=== PATIENT | female | born 1960 | race Caucasian/White ===

== ENCOUNTER 2018-01-17 20:30 | Inpatient (IN) | payer OTHER ==
[~2018-01-17] VITALS: Ht 162.6 cm; Wt 110.0 kg
[2018-01-17] MEDS ORDERED: ondansetron 4mg rapidly disintigrating tab PO ONE (20:45)
[2018-01-17] MEDS ORDERED: morphine 4 MG/ML inj SYRINge IV ONE ×2 (20:45→21:30)
[2018-01-17] MEDS ORDERED: normal saline 1000ml 1,000 ML IV ONE (21:40)
[2018-01-17 22:00] LABS: BASOPHILS % (AUTO) 0 % (0-1); EOSINOPHILS # (AUTO) 0.2 X10'3 (0-0.9); HEMATOCRIT 37.6 % (35.0-45.0); HEMOGLOBIN 12.6 g/dl (12.0-16.0); LYMPHOCYTES # (AUTO) 1.3 X10'3 (1.1-4.8); LYMPHOCYTES % (AUTO) 10.3 % (21-51); MEAN CORPUSCULAR HEMOGLOBIN 27.8 PG (27.0-31.0); MEAN CORPUSCULAR HGB CONC 33.5 % (33.0-36.5); MEAN CORPUSCULAR VOLUME 83.1 FL (78-98); MEAN PLATELET VOLUME 8.7 FL (7.4-10.4); MONOCYTES # (AUTO) 0.3 X10'3 (0-0.9); MONOCYTES % (AUTO) 2.6 % (2-12); NEUTROPHILS # (AUTO) 10.7 X10'3 (1.8-7.7); NEUTROPHILS % (AUTO) 85.1 % (42-75); PLATELET COUNT 354 X10'3 (140-440); RED BLOOD COUNT 4.53 X10'6 (4.20-5.60); RED CELL DISTRIBUTION WIDTH 14.6 % (11.5-14.5); WHITE BLOOD COUNT 12.5 X10'3 (4.5-11.0)
[2018-01-17] MEDS ORDERED: FLEC50TA PO (22:02)
[2018-01-17] MEDS ORDERED: ESTR1TAB19 PO (22:02)
[2018-01-17] MEDS ORDERED: MEDR2.5T PO (22:02)
[2018-01-17] MEDS ORDERED: GABA300C PO (22:02)
[2018-01-17] MEDS ORDERED: LANS30TA4 PO (22:02)
[2018-01-17] MEDS ORDERED: FURO-149 PO (22:02)
[2018-01-17] MEDS ORDERED: TRAM50TA2 PO (22:12)
[2018-01-17] MEDS ORDERED: POTA10TA19 PO (22:12)
[2018-01-17] MEDS ORDERED: NITR0.4T SL (22:12)
[2018-01-17] MEDS ORDERED: LISI-600 PO (22:12)
[2018-01-17] MEDS ORDERED: ALPR1TAB2 PO (22:12)
[2018-01-17] MEDS ORDERED: CHOL500050 (22:12)
[2018-01-17] MEDS ORDERED: METF500T PO (22:12)
[2018-01-17] MEDS ORDERED: LEVO50TA8 PO (22:12)
[2018-01-17] MEDS ORDERED: VALA10002 PO (22:12)
[2018-01-17 22:15] LABS: ALANINE AMINOTRANSFERASE 18 U/L (12-78); ALBUMIN 3.3 G/DL (3.4-5.0); ALBUMIN/GLOBULIN RATIO 0.8 (1.1-1.5); ALKALINE PHOSPHATASE 95 IU/L (46-116); ANION GAP 8 (8-16); ASPARTATE AMINO TRANSFERASE 12 U/L (10-37); BILIRUBIN,TOTAL 0.5 MG/DL (0.1-1.0); BLOOD UREA NITROGEN 16 MG/DL (7-18); BUN/CREATININE RATIO 13.7 (6.6-38.0); CHLORIDE 101 MMOL/L (99-107); CREATININE 1.17 MG/DL (0.40-0.90); GLUCOSE 100 MG/DL (70-104); POTASSIUM 4.1 MMOL/L (3.5-5.1); SODIUM 137 MMOL/L (135-145); TOTAL PROTEIN 7.3 G/DL (6.4-8.2); eGFR 47 ML/MIN
[2018-01-17 22:36] LABS: CLARITY,URINE CLEAR (Clear); COLOR,URINE YELLOW (Yellow); GLUCOSE, URINE NEGATIVE (Neg); KETONES,URINE NEGATIVE (Neg); LEUKOCYTE ESTERASE ,URINE NEGATIVE (Neg); NITRITES, URINE NEGATIVE (Neg); OCCULT BLOOD,URINE MODERATE (Neg); PH,URINE 6.5 (4.8-8.0); PROTEIN,URINE NEGATIVE (Neg); UROBILINOGEN,URINE 0.2 E.U/dL (0.2-1.0)
[2018-01-17 22:44] LABS: UA COLLECTION TYPE CLN CATCH MIDSTREAM
[2018-01-17 22:47] LABS: BACTERIA,URINE 3+ /HPF (Neg); SQUAMOUS EPITHELIAL CELL,UR MANY /LPF (FEW); WBC,URINE 0-4 /HPF (0-4)
[2018-01-17 22:48] LABS: RBC,URINE 0-2 /HPF (0-2)
[2018-01-17] MEDS ORDERED: HYDROmorphone 1 mg/ml syringe IV ONE (23:10)
[2018-01-18] MEDS ORDERED: DILT120T14 PO (01:14)
[2018-01-18] MEDS ORDERED: normal saline 1000ml 1,000 ML IV SCH (01:38)
[2018-01-18] MEDS ORDERED: magnesium hydroxide 30ml (MOM) UD suspension PO PRN (01:40)
[2018-01-18] MEDS ORDERED: mag hydrox/Alum hydrox/simeth 30ml oral suspension PO PRN (01:40)
[2018-01-18] MEDS ORDERED: acetaminophen 325mg tablet PO PRN (01:40)
[2018-01-18] MEDS ORDERED: naloxone 0.4 mg/ml inj IV PRN (01:45)
[2018-01-18] MEDS ORDERED: nitroGLYCERIN 0.4mg SUBLingual tab SL PRN (01:45)
[2018-01-18] MEDS ORDERED: CADD PCA waste documentation MC PRN (01:45)
[2018-01-18] MEDS ORDERED: HYDROmorphone 1 mg/ml syringe IV ONE (02:05)
[2018-01-18] MEDS: ondansetron/PF 4mg/2ml inj IV PRN (02:25)
[2018-01-18 02:50] VITALS: BP 122/73
[2018-01-18] MEDS: HYDROmorphone/NS 1 mg/ml CADD 50 ML IV SCH ×11 (03:00→23:00)
[2018-01-18 04:28] LABS: HEMOGLOBIN A1C 6.5 % (4.5-6.2)
[2018-01-18 06:00] VITALS: BP 90/47
[2018-01-18] MEDS: furosemide 40mg tablet PO SCH (08:00)
[2018-01-18] MEDS: lisinopril 20mg tablet PO SCH (08:00)
[2018-01-18] MEDS: lisinopril 5mg tablet PO SCH (08:00)
[2018-01-18] MEDS: traMADol 50MG tablet PO SCH ×2 (08:00→20:00)
[2018-01-18] MEDS: valacyclovir 500mg tablet PO SCH (08:00)
[2018-01-18] MEDS: diltiazem CD 120mg capsule (once-daily) PO SCH (08:00)
[2018-01-18] MEDS: levoTHYROXINE 25mcg tablet PO SCH (09:02)
[2018-01-18] MEDS: pantoprazole 40mg Tablet.DR PO SCH (09:02)
[2018-01-18] MEDS: metFORMIN 500mg tablet PO SCH (09:03)
[2018-01-18] MEDS: flecainide 50mg tablet PO SCH ×2 (09:04→21:03)
[2018-01-18] MEDS: gabapentin 300mg capsule PO SCH ×2 (09:04→21:03)
[2018-01-18] MEDS: potassium chloride 10mEq ER tablet PO SCH (09:05)
[2018-01-18] MEDS: medroxyprogesterone acet. 2.5mg tablet PO SCH (09:06)
[2018-01-18] MEDS: estradiol 1mg tablet PO SCH (09:06)
[2018-01-18 10:00] VITALS: BP 97/49
[2018-01-18] MEDS ORDERED: LORazepam 2 mg/ml vial IV ONE (13:20)
[2018-01-18 18:00] VITALS: BP 115/58
[2018-01-18 18:40] LABS: CLARITY,URINE SLIGHTLY CLOUDY (Clear); COLOR,URINE YELLOW (Yellow); GLUCOSE, URINE NEGATIVE (Neg); KETONES,URINE NEGATIVE (Neg); LEUKOCYTE ESTERASE ,URINE NEGATIVE (Neg); NITRITES, URINE NEGATIVE (Neg); OCCULT BLOOD,URINE MODERATE (Neg); PH,URINE 5.5 (4.8-8.0); PROTEIN,URINE NEGATIVE (Neg); UROBILINOGEN,URINE 0.2 E.U/dL (0.2-1.0)
[2018-01-18 18:46] LABS: UA COLLECTION TYPE NON-SPECIFIED
[2018-01-18 18:51] LABS: BACTERIA,URINE 2+ /HPF (Neg); MUCUS STRANDS NONE SEEN /LPF (Neg); RBC,URINE 0-2 /HPF (0-2); SQUAMOUS EPITHELIAL CELL,UR MANY /LPF (FEW)
[2018-01-18] MEDS: ALPRAZolam 0.5mg tablet PO SCH (21:03)
[2018-01-18] MEDS: sennosides/docusate sodium tablet PO SCH (21:03)
[2018-01-18 22:00] VITALS: BP 96/63
[2018-01-19] MEDS: diphenhydrAMINE 25mg capsule PO PRN
[2018-01-19] MEDS: HYDROmorphone/NS 1 mg/ml CADD 50 ML IV SCH ×5 (01:00→09:00)
[2018-01-19 05:53] LABS: BASOPHILS % (AUTO) 0.5 % (0-1); EOSINOPHILS # (AUTO) 0.2 X10'3 (0-0.9); EOSINOPHILS % (AUTO) 2.4 % (0-6); HEMATOCRIT 33.9 % (35.0-45.0); LYMPHOCYTES # (AUTO) 1.4 X10'3 (1.1-4.8); LYMPHOCYTES % (AUTO) 20.8 % (21-51); MEAN CORPUSCULAR HEMOGLOBIN 27.2 PG (27.0-31.0); MEAN CORPUSCULAR HGB CONC 32.6 % (33.0-36.5); MEAN CORPUSCULAR VOLUME 83.6 FL (78-98); MEAN PLATELET VOLUME 8.9 FL (7.4-10.4); MONOCYTES # (AUTO) 0.3 X10'3 (0-0.9); MONOCYTES % (AUTO) 4.3 % (2-12); PLATELET COUNT 281 X10'3 (140-440); RED BLOOD COUNT 4.05 X10'6 (4.20-5.60); RED CELL DISTRIBUTION WIDTH 14.9 % (11.5-14.5); WHITE BLOOD COUNT 6.9 X10'3 (4.5-11.0)
[2018-01-19 06:00] VITALS: BP 96/50
[2018-01-19 06:13] LABS: ALANINE AMINOTRANSFERASE 17 U/L (12-78); ALBUMIN 2.7 G/DL (3.4-5.0); ALBUMIN/GLOBULIN RATIO 0.8 (1.1-1.5); ALKALINE PHOSPHATASE 76 IU/L (46-116); ANION GAP 5 (8-16); ASPARTATE AMINO TRANSFERASE 15 U/L (10-37); BILIRUBIN,TOTAL 0.7 MG/DL (0.1-1.0); BLOOD UREA NITROGEN 12 MG/DL (7-18); BUN/CREATININE RATIO 11.4 (6.6-38.0); CALCIUM 8.3 MG/DL (8.5-10.1); CHLORIDE 103 MMOL/L (99-107); CREATININE 1.05 MG/DL (0.40-0.90); GLUCOSE 109 MG/DL (70-104); POTASSIUM 3.8 MMOL/L (3.5-5.1); SODIUM 138 MMOL/L (135-145); TOTAL CARBON DIOXIDE 29.8 MMOL/L (24-32); TOTAL PROTEIN 6.3 G/DL (6.4-8.2); eGFR 54 ML/MIN
[2018-01-19] MEDS: furosemide 40mg tablet PO SCH (08:00)
[2018-01-19] MEDS: valacyclovir 500mg tablet PO SCH (08:00)
[2018-01-19] MEDS: traMADol 50MG tablet PO SCH (08:00)
[2018-01-19] MEDS: levoTHYROXINE 25mcg tablet PO SCH (08:46)
[2018-01-19] MEDS: pantoprazole 40mg Tablet.DR PO SCH (08:46)
[2018-01-19] MEDS: flecainide 50mg tablet PO SCH ×2 (08:46→21:46)
[2018-01-19] MEDS: potassium chloride 10mEq ER tablet PO SCH (08:46)
[2018-01-19] MEDS: estradiol 1mg tablet PO SCH (08:46)
[2018-01-19] MEDS: medroxyprogesterone acet. 2.5mg tablet PO SCH (08:46)
[2018-01-19] MEDS: gabapentin 300mg capsule PO SCH ×2 (08:46→21:46)
[2018-01-19] MEDS: metFORMIN 500mg tablet PO SCH (08:46)
[2018-01-19] MEDS: lisinopril 20mg tablet PO SCH (08:48)
[2018-01-19] MEDS: lisinopril 5mg tablet PO SCH (08:48)
[2018-01-19] MEDS: diltiazem CD 120mg capsule (once-daily) PO SCH (08:48)
[2018-01-19] MEDS ORDERED: oxyCODONE/APAP 5-325mg tablet PO PRN (09:15)
[2018-01-19] MEDS: oxyCODONE/APAP 5-325mg tablet PO PRN ×4 (09:34→21:46)
[2018-01-19 10:00] VITALS: BP 156/68
[2018-01-19] MEDS ORDERED: cyclobenzaprine 10mg tablet PO PRN (13:50)
[2018-01-19] MEDS ORDERED: HYDROmorphone inj. 0.5 MG/0.5 ML DISP.SYRIN IV ONE (13:50)
[2018-01-19] MEDS ORDERED: HYDROmorphone 1 mg/ml syringe IV ONE (14:00)
[2018-01-19 18:00] VITALS: BP 97/37
[2018-01-19 18:15] VITALS: BP 126/78
[2018-01-19] MEDS: ALPRAZolam 0.5mg tablet PO SCH (21:00)
[2018-01-19] MEDS: sennosides/docusate sodium tablet PO SCH (21:51)
[2018-01-20] MEDS: diphenhydrAMINE 25mg capsule PO PRN (00:44)
[2018-01-20] MEDS: oxyCODONE/APAP 5-325mg tablet PO PRN ×5 (05:04→21:32)
[2018-01-20 06:00] VITALS: BP 101/46
[2018-01-20 06:06] LABS: BASOPHILS % (AUTO) 0.4 % (0-1); EOSINOPHILS # (AUTO) 0.1 X10'3 (0-0.9); EOSINOPHILS % (AUTO) 2.1 % (0-6); HEMATOCRIT 32.1 % (35.0-45.0); HEMOGLOBIN 10.7 g/dl (12.0-16.0); LYMPHOCYTES # (AUTO) 1.9 X10'3 (1.1-4.8); LYMPHOCYTES % (AUTO) 29.1 % (21-51); MEAN CORPUSCULAR HEMOGLOBIN 27.8 PG (27.0-31.0); MEAN CORPUSCULAR HGB CONC 33.4 % (33.0-36.5); MEAN CORPUSCULAR VOLUME 83.3 FL (78-98); MEAN PLATELET VOLUME 8.8 FL (7.4-10.4); MONOCYTES # (AUTO) 0.4 X10'3 (0-0.9); MONOCYTES % (AUTO) 5.6 % (2-12); NEUTROPHILS # (AUTO) 4.1 X10'3 (1.8-7.7); NEUTROPHILS % (AUTO) 62.8 % (42-75); PLATELET COUNT 286 X10'3 (140-440); RED BLOOD COUNT 3.85 X10'6 (4.20-5.60); RED CELL DISTRIBUTION WIDTH 14.9 % (11.5-14.5); WHITE BLOOD COUNT 6.6 X10'3 (4.5-11.0)
[2018-01-20 06:34] LABS: ALANINE AMINOTRANSFERASE 18 U/L (12-78); ALBUMIN 2.6 G/DL (3.4-5.0); ALBUMIN/GLOBULIN RATIO 0.8 (1.1-1.5); ALKALINE PHOSPHATASE 79 IU/L (46-116); ANION GAP 6 (8-16); ASPARTATE AMINO TRANSFERASE 14 U/L (10-37); BILIRUBIN,TOTAL 0.5 MG/DL (0.1-1.0); BLOOD UREA NITROGEN 12 MG/DL (7-18); BUN/CREATININE RATIO 11.8 (6.6-38.0); CALCIUM 8.7 MG/DL (8.5-10.1); CHLORIDE 104 MMOL/L (99-107); CREATININE 1.02 MG/DL (0.40-0.90); GLUCOSE 112 MG/DL (70-104); POTASSIUM 3.8 MMOL/L (3.5-5.1); SODIUM 138 MMOL/L (135-145); TOTAL CARBON DIOXIDE 28.5 MMOL/L (24-32); eGFR 55 ML/MIN
[2018-01-20] MEDS: metFORMIN 500mg tablet PO SCH (07:13)
[2018-01-20] MEDS: levoTHYROXINE 25mcg tablet PO SCH (07:13)
[2018-01-20] MEDS: pantoprazole 40mg Tablet.DR PO SCH (07:13)
[2018-01-20] MEDS: flecainide 50mg tablet PO SCH ×2 (07:14→21:32)
[2018-01-20] MEDS: gabapentin 300mg capsule PO SCH ×2 (07:14→21:31)
[2018-01-20] MEDS: medroxyprogesterone acet. 2.5mg tablet PO SCH (07:14)
[2018-01-20] MEDS: potassium chloride 10mEq ER tablet PO SCH (07:14)
[2018-01-20] MEDS: diltiazem CD 120mg capsule (once-daily) PO SCH (07:14)
[2018-01-20] MEDS: estradiol 1mg tablet PO SCH (07:14)
[2018-01-20] MEDS: valacyclovir 500mg tablet PO SCH (08:00)
[2018-01-20] MEDS: lisinopril 20mg tablet PO SCH (08:00)
[2018-01-20] MEDS: lisinopril 5mg tablet PO SCH (08:00)
[2018-01-20] MEDS: furosemide 40mg tablet PO SCH (08:00)
[2018-01-20 18:00] VITALS: BP 107/53
[2018-01-20] MEDS: ALPRAZolam 0.5mg tablet PO SCH (21:00)
[2018-01-20] MEDS: sennosides/docusate sodium tablet PO SCH (21:31)
[2018-01-20 22:00] VITALS: BP 112/70
[2018-01-21] MEDS: HYDROmorphone 1 mg/ml syringe IV PRN ×2 (01:41→05:49)
[2018-01-21] MEDS: oxyCODONE/APAP 5-325mg tablet PO PRN ×2 (01:52→04:52)
[2018-01-21 06:08] LABS: BASOPHILS % (AUTO) 0.5 % (0-1); EOSINOPHILS # (AUTO) 0.2 X10'3 (0-0.9); EOSINOPHILS % (AUTO) 2.6 % (0-6); HEMATOCRIT 33.3 % (35.0-45.0); MEAN CORPUSCULAR HEMOGLOBIN 27.6 PG (27.0-31.0); MEAN CORPUSCULAR HGB CONC 33.1 % (33.0-36.5); MEAN CORPUSCULAR VOLUME 83.5 FL (78-98); MEAN PLATELET VOLUME 8.4 FL (7.4-10.4); MONOCYTES # (AUTO) 0.4 X10'3 (0-0.9); MONOCYTES % (AUTO) 5.9 % (2-12); PLATELET COUNT 312 X10'3 (140-440); RED CELL DISTRIBUTION WIDTH 15.1 % (11.5-14.5); WHITE BLOOD COUNT 7.6 X10'3 (4.5-11.0)
[2018-01-21 06:36] LABS: ALANINE AMINOTRANSFERASE 29 U/L (12-78); ALBUMIN 2.7 G/DL (3.4-5.0); ALBUMIN/GLOBULIN RATIO 0.7 (1.1-1.5); ALKALINE PHOSPHATASE 78 IU/L (46-116); ANION GAP 6 (8-16); ASPARTATE AMINO TRANSFERASE 26 U/L (10-37); BILIRUBIN,TOTAL 0.9 MG/DL (0.1-1.0); BLOOD UREA NITROGEN 10 MG/DL (7-18); BUN/CREATININE RATIO 9.3 (6.6-38.0); CALCIUM 8.8 MG/DL (8.5-10.1); CHLORIDE 102 MMOL/L (99-107); CREATININE 1.08 MG/DL (0.40-0.90); GLUCOSE 112 MG/DL (70-104); POTASSIUM 3.8 MMOL/L (3.5-5.1); SODIUM 136 MMOL/L (135-145); TOTAL CARBON DIOXIDE 28.3 MMOL/L (24-32); TOTAL PROTEIN 6.4 G/DL (6.4-8.2); eGFR 52 ML/MIN
[2018-01-21 06:48] VITALS: BP 103/42
[2018-01-21] MEDS: gabapentin 300mg capsule PO SCH ×2 (07:55→21:55)
[2018-01-21] MEDS: furosemide 40mg tablet PO SCH (07:55)
[2018-01-21] MEDS: metFORMIN 500mg tablet PO SCH (07:55)
[2018-01-21] MEDS: diltiazem CD 120mg capsule (once-daily) PO SCH (07:56)
[2018-01-21] MEDS: valacyclovir 500mg tablet PO SCH (07:56)
[2018-01-21] MEDS: potassium chloride 10mEq ER tablet PO SCH (07:56)
[2018-01-21] MEDS: lisinopril 5mg tablet PO SCH (07:56)
[2018-01-21] MEDS: pantoprazole 40mg Tablet.DR PO SCH (07:56)
[2018-01-21] MEDS: lisinopril 20mg tablet PO SCH (07:56)
[2018-01-21] MEDS: flecainide 50mg tablet PO SCH ×2 (07:57→21:53)
[2018-01-21] MEDS: estradiol 1mg tablet PO SCH (07:57)
[2018-01-21] MEDS: medroxyprogesterone acet. 2.5mg tablet PO SCH (07:57)
[2018-01-21] MEDS: levoTHYROXINE 25mcg tablet PO SCH (07:57)
[2018-01-21] MEDS ORDERED: oxyCODONE/APAP 10/325mg tablet PO PRN (08:35)
[2018-01-21] MEDS: oxyCODONE/APAP 10/325mg tablet PO PRN ×4 (10:18→21:54)
[2018-01-21 12:37] VITALS: BP 102/50
[2018-01-21 18:00] VITALS: BP 96/47
[2018-01-21 21:39] VITALS: BP 104/50
[2018-01-21] MEDS: sennosides/docusate sodium tablet PO SCH (21:55)
[2018-01-21] MEDS: ALPRAZolam 0.5mg tablet PO SCH (21:55)
[2018-01-22] MEDS: oxyCODONE/APAP 10/325mg tablet PO PRN ×5 (01:49→20:46)
[2018-01-22 05:00] VITALS: BP 103/43
[2018-01-22 06:40] LABS: BASOPHILS # (AUTO) 0.1 X10'3 (0-0.2); BASOPHILS % (AUTO) 0.7 % (0-1); EOSINOPHILS # (AUTO) 0.2 X10'3 (0-0.9); EOSINOPHILS % (AUTO) 1.9 % (0-6); HEMATOCRIT 34.8 % (35.0-45.0); HEMOGLOBIN 11.4 g/dl (12.0-16.0); LYMPHOCYTES # (AUTO) 2.2 X10'3 (1.1-4.8); LYMPHOCYTES % (AUTO) 26.3 % (21-51); MEAN CORPUSCULAR HEMOGLOBIN 27.4 PG (27.0-31.0); MEAN CORPUSCULAR HGB CONC 32.8 % (33.0-36.5); MEAN CORPUSCULAR VOLUME 83.6 FL (78-98); MEAN PLATELET VOLUME 9.1 FL (7.4-10.4); MONOCYTES # (AUTO) 0.4 X10'3 (0-0.9); MONOCYTES % (AUTO) 5.3 % (2-12); NEUTROPHILS # (AUTO) 5.5 X10'3 (1.8-7.7); NEUTROPHILS % (AUTO) 65.8 % (42-75); PLATELET COUNT 358 X10'3 (140-440); RED BLOOD COUNT 4.17 X10'6 (4.20-5.60); RED CELL DISTRIBUTION WIDTH 15.2 % (11.5-14.5); WHITE BLOOD COUNT 8.3 X10'3 (4.5-11.0)
[2018-01-22 07:00] LABS: ALANINE AMINOTRANSFERASE 30 U/L (12-78); ALBUMIN 2.8 G/DL (3.4-5.0); ALBUMIN/GLOBULIN RATIO 0.7 (1.1-1.5); ALKALINE PHOSPHATASE 83 IU/L (46-116); ANION GAP 8 (8-16); ASPARTATE AMINO TRANSFERASE 21 U/L (10-37); BILIRUBIN,TOTAL 0.8 MG/DL (0.1-1.0); BLOOD UREA NITROGEN 12 MG/DL (7-18); BUN/CREATININE RATIO 11.8 (6.6-38.0); CALCIUM 8.8 MG/DL (8.5-10.1); CHLORIDE 103 MMOL/L (99-107); CREATININE 1.02 MG/DL (0.40-0.90); GLUCOSE 107 MG/DL (70-104); POTASSIUM 4.1 MMOL/L (3.5-5.1); SODIUM 137 MMOL/L (135-145); TOTAL PROTEIN 6.7 G/DL (6.4-8.2); eGFR 55 ML/MIN
[2018-01-22 07:49] VITALS: BP 110/59
[2018-01-22] MEDS: metFORMIN 500mg tablet PO SCH (07:51)
[2018-01-22] MEDS: diltiazem CD 120mg capsule (once-daily) PO SCH (07:51)
[2018-01-22] MEDS: pantoprazole 40mg Tablet.DR PO SCH (07:51)
[2018-01-22] MEDS: flecainide 50mg tablet PO SCH ×2 (07:51→20:46)
[2018-01-22] MEDS: potassium chloride 10mEq ER tablet PO SCH (07:51)
[2018-01-22] MEDS: gabapentin 300mg capsule PO SCH ×2 (07:51→20:46)
[2018-01-22] MEDS: valacyclovir 500mg tablet PO SCH (07:51)
[2018-01-22] MEDS: lisinopril 5mg tablet PO SCH (07:52)
[2018-01-22] MEDS: medroxyprogesterone acet. 2.5mg tablet PO SCH (07:52)
[2018-01-22] MEDS: lisinopril 20mg tablet PO SCH (07:52)
[2018-01-22] MEDS: estradiol 1mg tablet PO SCH (07:52)
[2018-01-22] MEDS: levoTHYROXINE 25mcg tablet PO SCH (07:52)
[2018-01-22] MEDS: furosemide 40mg tablet PO SCH (07:57)
[2018-01-22 10:00] VITALS: BP 100/58
[2018-01-22] MEDS: ondansetron/PF 4mg/2ml inj IV PRN (10:33)
[2018-01-22] MEDS ORDERED: ondansetron 4mg/5ml UD cup PO PRN (10:40)
[2018-01-22 18:00] VITALS: BP 113/70
[2018-01-22] MEDS: ALPRAZolam 0.5mg tablet PO SCH ×2 (20:46→21:00)
[2018-01-22] MEDS: sennosides/docusate sodium tablet PO SCH (20:46)
[2018-01-22 22:00] VITALS: BP 93/47
[2018-01-22] MEDS: diphenhydrAMINE 25mg capsule PO PRN (22:01)
[2018-01-23] MEDS: oxyCODONE/APAP 10/325mg tablet PO PRN (00:29)
[2018-01-23 05:00] VITALS: BP 102/67
[2018-01-23] MEDS ORDERED: HYDROcodone/acetaminophen 10/325mg tab PO PRN (05:00)
[2018-01-23] MEDS: HYDROcodone/acetaminophen 10/325mg tab PO PRN ×2 (05:18→09:38)
[2018-01-23] MEDS ORDERED: HYDR-3972 PO (05:58)
[2018-01-23] MEDS ORDERED: ASPI-1264 PO (05:58)
[2018-01-23] MEDS ORDERED: WALKERFR (06:09)
[2018-01-23 06:34] LABS: BASOPHILS % (AUTO) 0.5 % (0-1); EOSINOPHILS # (AUTO) 0.2 X10'3 (0-0.9); EOSINOPHILS % (AUTO) 2.7 % (0-6); HEMOGLOBIN 10.9 g/dl (12.0-16.0); LYMPHOCYTES # (AUTO) 1.7 X10'3 (1.1-4.8); LYMPHOCYTES % (AUTO) 25.8 % (21-51); MEAN CORPUSCULAR HEMOGLOBIN 27.6 PG (27.0-31.0); MEAN CORPUSCULAR HGB CONC 33.2 % (33.0-36.5); MEAN CORPUSCULAR VOLUME 83.3 FL (78-98); MEAN PLATELET VOLUME 8.4 FL (7.4-10.4); MONOCYTES # (AUTO) 0.4 X10'3 (0-0.9); MONOCYTES % (AUTO) 5.3 % (2-12); NEUTROPHILS # (AUTO) 4.4 X10'3 (1.8-7.7); NEUTROPHILS % (AUTO) 65.7 % (42-75); PLATELET COUNT 324 X10'3 (140-440); RED BLOOD COUNT 3.96 X10'6 (4.20-5.60); RED CELL DISTRIBUTION WIDTH 15.1 % (11.5-14.5); WHITE BLOOD COUNT 6.7 X10'3 (4.5-11.0)
[2018-01-23 06:56] LABS: ALANINE AMINOTRANSFERASE 35 U/L (12-78); ALBUMIN 2.6 G/DL (3.4-5.0); ALBUMIN/GLOBULIN RATIO 0.7 (1.1-1.5); ALKALINE PHOSPHATASE 74 IU/L (46-116); ANION GAP 6 (8-16); ASPARTATE AMINO TRANSFERASE 24 U/L (10-37); BILIRUBIN,TOTAL 0.7 MG/DL (0.1-1.0); BLOOD UREA NITROGEN 13 MG/DL (7-18); BUN/CREATININE RATIO 11.7 (6.6-38.0); CALCIUM 8.7 MG/DL (8.5-10.1); CHLORIDE 103 MMOL/L (99-107); CREATININE 1.11 MG/DL (0.40-0.90); GLUCOSE 126 MG/DL (70-104); POTASSIUM 3.8 MMOL/L (3.5-5.1); SODIUM 137 MMOL/L (135-145); TOTAL CARBON DIOXIDE 28.4 MMOL/L (24-32); TOTAL PROTEIN 6.3 G/DL (6.4-8.2); eGFR 50 ML/MIN
[2018-01-23] MEDS: valacyclovir 500mg tablet PO SCH (07:47)
[2018-01-23] MEDS: pantoprazole 40mg Tablet.DR PO SCH (07:47)
[2018-01-23] MEDS: estradiol 1mg tablet PO SCH (07:47)
[2018-01-23] MEDS: metFORMIN 500mg tablet PO SCH (07:47)
[2018-01-23] MEDS: gabapentin 300mg capsule PO SCH (07:48)
[2018-01-23] MEDS: diltiazem CD 120mg capsule (once-daily) PO SCH (07:48)
[2018-01-23] MEDS: lisinopril 5mg tablet PO SCH (07:48)
[2018-01-23] MEDS: furosemide 40mg tablet PO SCH (07:48)
[2018-01-23] MEDS: lisinopril 20mg tablet PO SCH (07:48)
[2018-01-23] MEDS: flecainide 50mg tablet PO SCH (07:48)
[2018-01-23] MEDS: medroxyprogesterone acet. 2.5mg tablet PO SCH (07:48)
[2018-01-23] MEDS: levoTHYROXINE 25mcg tablet PO SCH (07:49)
[2018-01-23 07:54] VITALS: BP 106/56
[2018-01-23] MEDS: potassium chloride 10mEq ER tablet PO SCH (08:32)
== END 2018-01-23 10:10 | disposition home or self-care (01) | DRG 538 ==
LOC: EEVIPCON 20:30 → ER 20:30 → ED HOLD 01-18 01:38 → EEVIPCON 01-18 01:38 → ORTHO 4S 01-18 02:40
PROVIDERS: ADMIT Internal Medicine; ATTEND Orthopaedic Surgery
PROC: 5A09357 Assistance with Respiratory Ventilation, Less than 24 Consecutive Hours, Continuous Positive Airway Pressure (ICD-10-PCS; principal; 2018-01-18)
DX: S76.312A Strain of muscle, fascia and tendon of the posterior muscle group at thigh level, left thigh, initial encounter (principal); E11.9 Type 2 diabetes mellitus without complications; D50.0 Iron deficiency anemia secondary to blood loss (chronic); G47.33 Obstructive sleep apnea (adult) (pediatric); I10 Essential (primary) hypertension; I25.10 Atherosclerotic heart disease of native coronary artery without angina pectoris; K59.00 Constipation, unspecified; E03.9 Hypothyroidism, unspecified; W01.0XXA Fall on same level from slipping, tripping and stumbling without subsequent striking against object, initial encounter; Z96.652 Presence of left artificial knee joint; Y93.89 Activity, other specified; Y92.098 Other place in other non-institutional residence as the place of occurrence of the external cause; Y99.8 Other external cause status; Z88.1 Allergy status to other antibiotic agents; Z79.899 Other long term (current) drug therapy; Z87.891 Personal history of nicotine dependence
CPT/HCPCS: 36415; 71045; 72170; 72195; 73721; 80053; 81001; 82948; 83036; 84443; 85025; 86885; 86900; 86901; 87070; 87077; 87088; 93005; 97110; 97116; 97162; 97530; G0378; J1170; J2060; J2270; J2405; J7030; Q0163